=== PATIENT | female | born 1995 | race Caucasian/White ===

== ENCOUNTER 2016-05-20 09:19 | Emergency (ER) | payer OTHER ==
[2016-05-20 09:34] VITALS: BP 124/84; TEMP 97.4; O2SAT 99
[2016-05-20] MEDS ORDERED: methylPREDNISolone SODIUM SUC 125 MG/2 ML VIAL IM ONE (09:35)
[2016-05-20] MEDS ORDERED: IPRATROPIUM/ALBUTEROL 3 ML VIAL NEB ONE (09:35)
--- NOTE | 2016-05-20 09:37 | ED.PDOC ---
History of Present Illness - General Chief Complaint: Respiratory Problem Stated Complaint: cough and congestion x 2 days, worse after night Time Seen by Provider: 05/20/16 09:21 Source: patient, RN notes reviewed, Vital Signs reviewed Exam Limitations: no limitations - History of Present Illness Comments: Patient comes in with several days of worsening allergy symptoms. + chills, sneezing, cough, nausea. No chest pain but feels like there is a knot in her chest. Not improving with OTC medications. Timing/Duration: getting worse Cough Quality/Degree: moderate, productive cough Possible Cause: allergen exposure Improving Factors: nothing Worsening Factors: nothing Associated Symptoms: chest pain/soreness, cough, fever/chills, nasal congestion , shortness of breath, wheezing Allergies/Adverse Reactions: Allergies Penicillins Allergy (Verified 05/20/16 09:29) Review of Systems - Review of Systems Constitutional: States: chills. Denies: diaphoresis, fever, malaise EENTM: States: see HPI, nose congestion Respiratory: States: cough, short of breath, wheezing. Denies: orthopnea, stridor Cardiology: States: no symptoms reported Gastrointestinal/Abdominal: States: nausea. Denies: abdominal pain, diarrhea, vomiting Musculoskeletal: States: no symptoms reported Skin: States: no symptoms reported Neurological: States: no symptoms reported. Denies: headache Past Medical History (General) - Patient Medical History Hx Seizures: No Hx Stroke: No Hx Dementia: No Hx Asthma: No Hx of COPD: No Hx Cardiac Disorders: No Hx Congestive Heart Failure: No Hx Pacemaker: No Hx Hypertension: No Hx Thyroid Disease: No Hx Diabetes: No Hx Gastroesophageal Reflux: No Hx Renal Disease: No Hx Cancer: No Hx of HIV: No Hx Hepatitis C: No Hx MRSA: No - Vaccination History Hx Tetanus, Diphtheria Vaccination: Yes Hx Influenza Vaccination: No Hx Pneumococcal Vaccination: No Immunizations Up to Date: No - Social History Hx Tobacco Use: Yes Hx Chewing Tobacco Use: No Hx Alcohol Use: No Hx Substance Use: No Hx Substance Use Treatment: No Hx Depression: No Feels Threatened In Home Enviroment: No Feels Threatened In a Relationship: No Hx Physical Abuse: No Hx Emotional Abuse: No Hx Suspected Abuse: No - Female History Patient is a Female of Child Bearing Age (10 -59 yrs old): No Patient : No Family Medical History - Family History Mother Family History: Unknown Living Status: Unknown Physical Exam - Physical Exam General Appearance: Alert, Comfortable, No apparent distress, Well Developed, Well Groomed, Well Hydrated, Well Nourished Eye Exam: bilateral normal ENT Exam: hearing grossly normal, nasal congestion, pharyngeal erythema Neck: non-tender, full range of motion, supple, normal inspection Respiratory: chest non-tender, lungs clear, normal breath sounds, no respiratory distress, no accessory muscle use Cardiovascular/Chest: regular rate, rhythm, no edema, no gallop, no JVD, no murmur Neurologic: alert, normal mood/affect, oriented x 3 Skin Exam: normal color, warm/dry Departure - Departure Clinical Impression: Asthma with exacerbation Qualifiers: Asthma severity: mild intermittent Qualifier Code: (J45.21) Mild intermittent asthma with (acute) exacerbation Disposition: Discharge to Home or Self Care Condition: Good Departure Forms: ED Discharge - Pt. Copy, Patient Portal Self Enrollment Instructions: DI for Asthma -- Adult Diet: resume usual diet Activity: increase activity as tolerated
== END 2016-05-20 10:10 | disposition home or self-care (01) ==
LOC: ER 09:19
DX: J45.21 Mild intermittent asthma with (acute) exacerbation (principal); J30.1 Allergic rhinitis due to pollen; Z87.891 Personal history of nicotine dependence; Z88.0 Allergy status to penicillin
CPT/HCPCS: 94640; J2930; J7620

== ENCOUNTER 2016-06-18 09:58 | Emergency (ER) | payer OTHER ==
[2016-06-18 10:36] VITALS: TEMP 97.9; O2SAT 99
--- NOTE | 2016-06-18 11:03 | ED.PDOC ---
History of Present Illness - General Chief Complaint: Respiratory Problem Stated Complaint: cough Time Seen by Provider: 06/18/16 10:05 Source: patient Exam Limitations: no limitations - History of Present Illness Initial Comments: The patient is a 20-year-old female presenting to the emergency room secondary to recurrence of a cough over the last 3 days with mild shortness of breath. No fever. Minimal sputum production. No palpitations. No chest pain. No runny nose or congestion. She has had a history of significant seasonal allergies and was placed on Singulair last month she did help for that period of time up until 3 days ago. 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 Severity: mild Improving Factors: nothing Worsening Factors: nothing Associated Symptoms: cough, shortness of breath Allergies/Adverse Reactions: Allergies Penicillins Allergy (Verified 06/18/16 10:36) Home Medications: Ambulatory Orders Montelukast Sodium [Singulair] 10 mg PO DAILY #30 tab 05/20/16 predniSONE [Prednisone] 20 mg PO DAILY #5 tab 06/18/16 Review of Systems - Review of Systems Constitutional: States: no symptoms reported EENTM: States: no symptoms reported Respiratory: States: cough, short of breath - mild Cardiology: States: no symptoms reported Gastrointestinal/Abdominal: States: no symptoms reported Genitourinary: States: no symptoms reported Musculoskeletal: States: no symptoms reported Skin: States: no symptoms reported Neurological: States: no symptoms reported Endocrine: States: no symptoms reported All other Systems: No Change from Baseline Past Medical History (General) - Patient Medical History Hx Seizures: No Hx Stroke: No Hx Dementia: No Hx Asthma: No Hx of COPD: No Hx Cardiac Disorders: No Hx Congestive Heart Failure: No Hx Pacemaker: No Hx Hypertension: No Hx Thyroid Disease: No Hx Diabetes: No Hx Gastroesophageal Reflux: No Hx Renal Disease: No Hx Cancer: No Hx of HIV: No Hx Hepatitis C: No Hx MRSA: No Surgical History: tonsillectomy - Vaccination History Hx Tetanus, Diphtheria Vaccination: Yes Hx Influenza Vaccination: No Hx Pneumococcal Vaccination: No - Social History Hx Tobacco Use: Yes Hx Chewing Tobacco Use: No Hx Alcohol Use: No Hx Substance Use: No Hx Substance Use Treatment: No Hx Depression: No Hx Physical Abuse: No Hx Emotional Abuse: No Hx Suspected Abuse: No - Activities of Daily Living Hospice Agency (if applicable):: None - Female History Patient is a Female of Child Bearing Age (10 -59 yrs old): Yes Patient : No Family Medical History - Family History Mother Family History: Unknown Living Status: Unknown Physical Exam - Physical Exam General Appearance: Alert, Comfortable, No apparent distress Eye Exam: bilateral normal Ears, Nose, Throat: hearing grossly normal, normal ENT inspection, normal pharynx Neck: full range of motion, supple Respiratory: chest non-tender, lungs clear, normal breath sounds, no respiratory distress, no accessory muscle use, other - the patient does have a significant clearing cough. Cardiovascular/Chest: normal peripheral pulses, regular rate, rhythm, no edema Peripheral Pulses: radial,right: 2+, radial,left: 2+ Gastrointestinal/Abdominal: non tender, soft Rectal Exam: deferred Back Exam: normal inspection, no CVA tenderness, no vertebral tenderness Extremity: normal range of motion, non-tender, normal inspection, no pedal edema , normal capillary refill Neurologic: brush polisher II-XII nml as tested, alert, normal mood/affect, oriented x 3 Skin Exam: normal color Comments: Vital Signs - 24 hr 06/18/16 06/18/16 10:20 10:39 Temperature 97.9 F Pulse Rate [ 20 L pulse ox] Respiratory 20 20 Rate Blood Pressure 117/78 [Left Arm] O2 Sat by Pulse 99 Oximetry Progress - Progress Progress: 06/18/16 11:04 the patient is a 20-year-old female presenting secondary to recurrence of cough and mild intermittent shortness of breath. The patient is to continue her Singulair. She'll be written for an albuterol inhaler to take 2 -4 puffs when she is feeling any shortness of breath to see if this improves her shortness of breath. The patient is going to be placed on prednisone 20 mg daily for 5 days. The patient primarily appears to have a bronchitis. It is possibly related to mild asthma but may also be due to a viral or chemical source given her work environment. She does need to wear a mask when doing her work when she is exposed to potentially irritating substances in the air. ER warnings were given. She needs to follow up with her primary care doctor next week. Departure - Departure Clinical Impression: Acute bronchitis Qualifiers: Bronchitis organism: unspecified organism Qualified Code(s): J20.9 - Acute bronchitis, unspecified Disposition: Discharge to Home or Self Care Condition: Fair Departure Forms: ED Discharge - Pt. Copy, Patient Portal Self Enrollment Instructions: DI for Acute Bronchitis Referrals: Liban Noel MD [Primary Care Provider] - 1-2 Weeks Prescriptions: predniSONE [Prednisone] 20 mg PO DAILY #5 tab Home Medications: Ambulatory Orders Montelukast Sodium [Singulair] 10 mg PO DAILY #30 tab 05/20/16 predniSONE [Prednisone] 20 mg PO DAILY #5 tab 06/18/16 Additional Instructions: the patient is a 20-year-old female presenting secondary to recurrence of cough and mild intermittent shortness of breath. The patient is to continue her Singulair. She'll be written for an albuterol inhaler to take 2 -4 puffs when she is feeling any shortness of breath to see if this improves her shortness of breath. The patient is going to be placed on prednisone 20 mg daily for 5 days. The patient primarily appears to have a bronchitis. It is possibly related to mild asthma but may also be due to a viral or chemical source given her work environment. She does need to wear a mask when doing her work when she is exposed to potentially irritating substances in the air. ER warnings were given. She needs to follow up with her primary care doctor next week.
[2016-06-18 11:27] VITALS: BP 113/74
== END 2016-06-18 11:18 | disposition home or self-care (01) ==
LOC: ER 09:58
DX: J20.9 Acute bronchitis, unspecified (principal); Z87.891 Personal history of nicotine dependence; Z88.0 Allergy status to penicillin

== ENCOUNTER 2018-05-01 08:14 | Emergency (ER) | payer OTHER ==
[2018-05-01] MEDS ORDERED: ONDANSETRON INJ 4 MG/2 ML VIAL ONE (08:34)
[2018-05-01 08:36] VITALS: TEMP 99
[2018-05-01] MEDS ORDERED: SODIUM CHLORIDE 0.9% 1000ML 1,000 ML ONE (08:36)
[2018-05-01] MEDS ORDERED: ONDANSETRON INJ 4 MG/2 ML VIAL IV ONE (08:43)
[2018-05-01] MEDS ORDERED: SODIUM CHLORIDE 0.9% 1000ML 1,000 ML IVS ONE (08:43)
--- NOTE | 2018-05-01 08:51 | ED.PDOC ---
History of Present Illness - General Chief Complaint: Skin/Abrasion/Tear Stated Complaint: sacral abscess Time Seen by Provider: 05/01/18 08:38 Source: patient Exam Limitations: no limitations - History of Present Illness Initial Comments: Patient is a G1 at 30 weeks 6 days by U/S who presents with complaining of an abscess on the sacral area. She had vomiting x one this morning as well. She also was light-headed this morning. She said that the last time she vomited with this was about 2-3 months ago. She noticed the abscess two days ago. Patient denies contractions and says she has good movement. No other complaints. Timing/Duration: other - 2 days Severity: moderate Improving Factors: nothing Worsening Factors: nothing Associated Symptoms: other - denies fever Allergies/Adverse Reactions: Allergies Penicillins Allergy (Verified 06/18/16 10:36) Home Medications: Ambulatory Orders Acyclovir [Zovirax] 400 mg PO TID 05/01/18 Review of Systems - Review of Systems Constitutional: States: no symptoms reported EENTM: States: no symptoms reported Respiratory: States: no symptoms reported Cardiology: States: no symptoms reported Gastrointestinal/Abdominal: States: see HPI Genitourinary: States: no symptoms reported Musculoskeletal: States: no symptoms reported Skin: States: see HPI Endocrine: States: no symptoms reported Hematologic/Lymphatic: States: no symptoms reported Past Medical History (General) - Patient Medical History Hx Seizures: No Hx Stroke: No Hx Dementia: No Hx Asthma: No Hx of COPD: No Hx Cardiac Disorders: No Hx Congestive Heart Failure: No Hx Pacemaker: No Hx Hypertension: No Hx Thyroid Disease: No Hx Diabetes: No Hx Gastroesophageal Reflux: No Hx Renal Disease: No Hx Cancer: No Hx of HIV: No Hx Hepatitis C: No Hx MRSA: No Surgical History: other - Vaccination History Hx Tetanus, Diphtheria Vaccination: Yes Hx Influenza Vaccination: No Hx Pneumococcal Vaccination: No - Social History Hx Tobacco Use: Yes Hx Chewing Tobacco Use: No Hx Alcohol Use: No Hx Substance Use: No Hx Substance Use Treatment: No Hx Depression: No Hx Physical Abuse: No Hx Emotional Abuse: No Hx Suspected Abuse: No - Female History Patient : No Family Medical History - Family History Mother Family History: Unknown Living Status: Unknown Physical Exam - Physical Exam General Appearance: Alert Eye Exam: bilateral normal Ears, Nose, Throat: normal ENT inspection Neck: non-tender, full range of motion, supple Respiratory: lungs clear, normal breath sounds Cardiovascular/Chest: normal peripheral pulses, regular rate, rhythm, no edema Gastrointestinal/Abdominal: normal bowel sounds, non tender, soft, other - gravid Back Exam: normal inspection, no CVA tenderness Extremity: normal range of motion, non-tender, normal inspection Neurologic: no motor/sensory deficits, alert, normal mood/affect, oriented x 3 Skin Exam: normal color Lymphatic: no adenopathy Progress - Progress Progress: 05/01/18 10:34 Laboratory Tests 05/01/18 05/01/18 05/01/18 08:55 08:55 08:55 WBC 16.8 H RBC 3.72 L Hgb 10.4 L Hct 32.0 L MCV 86.0 MCH 28.0 MCHC 32.6 L RDW 13.2 Plt Count 299 MPV 9.0 Absolute Neuts (auto) 12.80 H Absolute Lymphs (auto) 2.40 Absolute Monos (auto) 1.40 H Absolute Eos (auto) 0.20 Absolute Basos (auto) 0.00 Neutrophils % 76.2 Lymphocytes % 14.2 L Monocytes % 8.3 Eosinophils % 1.0 Basophils % 0.3 Sodium 135 Potassium 4.0 Chloride 105 Carbon Dioxide 18 L Anion Gap 16.0 BUN < 5 L Creatinine 0.46 L BUN/Creatinine Ratio 10.9 Random Glucose 109 H Serum Osmolality 267.9 L Lactic Acid 2.0 Calcium 8.6 Total Bilirubin 0.8 AST 21 ALT 11 Alkaline Phosphatase 76 Serum Total Protein 6.6 Albumin 3.0 L Globulin 3.6 H Albumin/Globulin Ratio 0.8 L Patient's initial bp was 78/37. She was started on IV NS and a septic workup was initiated. wbc 16.8. Blood cultures taken and sent. Most likely from the abscess. Vancomycin 1250 mg IV x one and Clindamycni 600 mg po x one given in the E.D. to cover for the most likely pathogens. Patient's sbp increased to 102 after about 300 cc IV NS. One liter bolus completed and patient started on 200 ml/hr. Lactic acid 2.0. No signs of end organ damage. I spoke with her quality assurance nurse, Dr. Malinda Naqvi, who agreed with the current treatment as well as transferring the patient to [place] in [place]. Dr. Rocha, E.R., accepted the patient. While waiting for the ambulance to arrive here, the abscess site was prepped and draped in a sterile fashion. 4 cc of lidocaine without epinephrine was used to gain excellent local anesthesia. 1 cm incision made at the apex. Moderate amount of purulence expressed. Wound cultures taken and sent. Loculations broken up with curved hemostats. Abscess was irrigated with 30 cc sterile NS. Packed with iodoform gauze. Area was clean, dry, and hemostatic upon completion. Patient tolerated the procedure well. FHTs 132. 05/01/18 11:02 Departure - Departure Clinical Impression: Sepsis, Hypotension, Abscess, Third trimester Disposition: Transfer to Hospital Condition: Fair Departure Forms: ED Discharge - Pt. Copy, Patient Portal Self Enrollment Instructions: DI for Abrasion Diet: other - NPO Activity: as per physical therapy Home Medications: Ambulatory Orders Acyclovir [Zovirax] 400 mg PO TID 05/01/18
[2018-05-01] MEDS ORDERED: VANCOMYCIN HCL INJ 1,000 MG, VANCOMYCIN HCL INJ 250 MG in SODIUM CHLORIDE 0.9% 250ML 25... IVPB ONE (09:25)
[2018-05-01] MEDS ORDERED: CLINDAMYCIN INJ (VIAL) 600 MG in SODIUM CHLORIDE 0.9% 50ML 50 ML IVPB ONE (09:26)
[2018-05-01] MEDS ORDERED: CLINDAMYCIN PHOSPHATE 150 MG/ML VIAL ONE (09:28)
[2018-05-01] MEDS ORDERED: SODIUM CHLORIDE 0.9% 50ML 0 ML ONE (09:28)
[2018-05-01] MEDS ORDERED: VANCOMYCIN HCL INJ 1,000 MG VIAL IVPB ONE (09:29)
[2018-05-01] MEDS ORDERED: VANCOMYCIN HCL INJ 500 MG VIAL ONE (09:29)
[2018-05-01] MEDS ORDERED: SODIUM CHLORIDE 0.9% 250ML 250 ML ONE (09:30)
[2018-05-01] MEDS ORDERED: CLINDAMYCIN HCL CAP 150 MG CAP PO ONE (09:40)
[2018-05-01] MEDS ORDERED: LIDOCAINE 1% 10 ML VIAL INJ ONE (10:00)
[2018-05-01 10:02] VITALS: O2SAT 100
[2018-05-01] MEDS ORDERED: CHLORHEXIDINE GLUCONATE 4 % 15 ML UD TOP ONE (10:03)
[2018-05-01] MEDS ORDERED: IODOFORM 1/4 INCH 1 EA BTTL TOP ONE (10:18)
[2018-05-01] MEDS ORDERED: HYDROcodone 5MG/APAP 325MG 1 EA TAB ONE (10:52)
[2018-05-01] MEDS ORDERED: HYDROcodone 5MG/APAP 325MG 1 EA TAB PO ONE (10:54)
[2018-05-01 11:11] VITALS: BP 99/54
== END 2018-05-01 11:05 | disposition short-term general hospital (02) ==
LOC: ER 08:14
DX: O98.813 Other maternal infectious and parasitic diseases complicating pregnancy, third trimester (principal); A41.9 Sepsis, unspecified organism; L02.31 Cutaneous abscess of buttock; O99.89 Other specified diseases and conditions complicating pregnancy, childbirth and the puerperium; I95.9 Hypotension, unspecified; O21.9 Vomiting of pregnancy, unspecified; Z3A.30 30 weeks gestation of pregnancy; Z87.891 Personal history of nicotine dependence; Z88.0 Allergy status to penicillin
CPT/HCPCS: 36415; 80053; 81001; 83605; 85025; 87040; 87070; J2405; J3370; J7030; J7050

== ENCOUNTER 2018-05-15 19:15 | Inpatient (IN) | payer OTHER ==
[2018-05-15] MEDS ORDERED: SODIUM CHLORIDE 0.9% 1000ML 1,000 ML IVS ONE ×2 (19:34→20:55)
[2018-05-15] MEDS ORDERED: PROMETHAZINE HCL INJ 12.5 MG in SODIUM CHLORIDE 0.9% 50ML 50 ML IVPB ONE ×2 (19:34→22:35)
[2018-05-15] MEDS ORDERED: MORPHINE SULFATE INJ 10 MG/ML VIAL IV ONE (19:35)
[2018-05-15] MEDS ORDERED: PROMETHAZINE HCL INJ 25 MG/ML VIAL ONE ×2 (19:41→22:58)
[2018-05-15] MEDS ORDERED: SODIUM CHLORIDE 0.9% 50ML 50 ML ONE ×2 (19:41→22:58)
--- NOTE | 2018-05-15 20:00 | ED.PDOC ---
History of Present Illness - General Chief Complaint: General Stated Complaint: nausea/vomiting/diarrhea Time Seen by Provider: 05/15/18 19:33 Source: patient, family Exam Limitations: no limitations - History of Present Illness Timing/Duration: 4-6 hours Severity: moderate Improving Factors: nothing Worsening Factors: eating, movement Associated Symptoms: fever/chills, malaise, nausea/vomiting, weakness Allergies/Adverse Reactions: Allergies Penicillins Allergy (Verified 06/18/16 10:36) Home Medications: Ambulatory Orders Acyclovir [Zovirax] 400 mg PO TID 05/01/18 Review of Systems - Review of Systems Constitutional: States: chills, fever, malaise, weakness EENTM: States: nose congestion. Denies: eye pain, tearing, ear discharge, nose pain, throat pain, throat swelling, mouth pain, mouth swelling Respiratory: Denies: cough, short of breath Cardiology: Denies: chest pain, edema Gastrointestinal/Abdominal: States: diarrhea, nausea, vomiting. Denies: abdominal pain Genitourinary: Denies: discharge, dysuria, frequency, hematuria Musculoskeletal: States: muscle pain. Denies: muscle stiffness, neck pain Skin: Denies: change in color, rash Neurological: Denies: headache, numbness, paresthesia Endocrine: States: increased thirst Hematologic/Lymphatic: Denies: anemia, easy bleeding, easy bruising All other Systems: Reviewed and Negative Past Medical History (General) - Patient Medical History Hx Seizures: No Hx Stroke: No Hx Dementia: No Hx Asthma: No Hx of COPD: No Hx Cardiac Disorders: No Hx Congestive Heart Failure: No Hx Pacemaker: No Hx Hypertension: No Hx Thyroid Disease: No Hx Diabetes: No Hx Gastroesophageal Reflux: No Hx Renal Disease: No Hx Cancer: No Hx of HIV: No Hx Hepatitis C: No Hx MRSA: No Surgical History: tonsillectomy, other - Vaccination History Hx Tetanus, Diphtheria Vaccination: Yes Hx Influenza Vaccination: No Hx Pneumococcal Vaccination: No Immunizations Up to Date: Yes - Social History Hx Tobacco Use: Yes Hx Chewing Tobacco Use: No Hx Alcohol Use: No Hx Substance Use: No Hx Substance Use Treatment: No Hx Depression: No Feels Threatened In Home Enviroment: No Feels Threatened In a Relationship: No Hx Physical Abuse: No Hx Emotional Abuse: No Hx Suspected Abuse: No - Activities of Daily Living Hospice Agency (if applicable):: None - Female History Patient is a Female of Child Bearing Age (10 -59 yrs old): Yes - 32.6 weeks gestation Patient : Yes Expected Date of Delivery:: 06/14/18 Hx Gestational Age: 32 - Triage Comment ED Triage Comment: pt currently thowing up using emesis bag Family Medical History - Family History Mother Family History: Unknown Living Status: Unknown Physical Exam - Physical Exam General Appearance: Alert, Ill Appearing, Other - dehydrated Eye Exam: bilateral normal Ears, Nose, Throat: normal pharynx, other - has dry MM. no exudate, no retropharyngeal edema, no submandibular swelling, no trismus Neck: full range of motion, supple, normal inspection, lymphadenopathy (R), lymphadenopathy (L) Respiratory: chest non-tender, lungs clear, normal breath sounds, no respiratory distress, no accessory muscle use Cardiovascular/Chest: tachycardia Peripheral Pulses: radial,right: 2+, radial,left: 2+ Gastrointestinal/Abdominal: non tender, soft, no organomegaly, other - gravid uterus above the level of the umbilicus, good FHT Extremity: normal range of motion, non-tender, normal inspection Neurologic: no motor/sensory deficits, alert, normal mood/affect Skin Exam: normal color, warm/dry Progress - Progress Progress: 05/15/18 20:02 A chart review has been performed. She is here with fever, chills, N/V/D. reports being unable to tolerate PO or PO meds at home. She is currently 33 weeks . She denies history for pre-eclampsia, HELLP, gestational diabetes. She denies dysuria, Frequency, hesitancy, vaginal discharge. She reports she feels like she has the FLU, she reports that she has been around her step daughter who has the flu. She has dry MM and is tachycardic with an elevated temp. Would consider Dehydration, Bacteremia, influenza, electrolyte derangements, renal failure. Things like endometritis, colitiis, diverticulitis, colitis, ect are less likely without any pain in the abd/pelvis. 05/15/18 22:37 cbc shows an elevated WBC at 16 but I am unsure how much of this is infectious vrs . The Lactate is not elevated. The HR remained persistently elevated. The Bicarb is a bit low at 19. Her UA shows bacteria however the WBC are low. This is not related. Will bring in for hydration, antiemetics, abx to cover the UTI. She has a PCN allergy so will do macrobid given the . I discussed with Aziza Barber at 2225. Departure - Departure Clinical Impression: Dehydration during , Tachycardia Vomiting Qualifiers: Vomiting type: unspecified Vomiting Intractability: non-intractable Nausea presence: with nausea Qualified Code(s): R11.2 - Nausea with vomiting, unspecified Diarrhea Qualifiers: Diarrhea type: unspecified type Qualified Code(s): R19.7 - Diarrhea, unspecified Qualifiers: Weeks of gestation: 33 weeks Qualified Code(s): Z3A.33 - 33 weeks gestation of Fever Qualifiers: Fever type: unspecified Qualified Code(s): R50.9 - Fever, unspecified Time of Disposition: 22:25 Disposition: Admit Patient Condition: Good Departure Forms: ED Discharge - Pt. Copy, Patient Portal Self Enrollment Diet: regular diet Home Medications: Ambulatory Orders Acyclovir [Zovirax] 400 mg PO TID 05/01/18 Decision To Admit - Decistion To Admit Decision to Admit Reason: Medical Nature Decision to Admit Date: 05/15/18 Decision to Admit Time: 22:35
[2018-05-15] MEDS ORDERED: ACETAMINOPHEN LIQUID 160 MG/5 ML UD PO ONE (20:07)
[2018-05-15] MEDS ORDERED: ACETAMINOPHEN 500 MG TAB PO ONE (20:16)
[2018-05-15] MEDS ORDERED: NITROFURANTOIN MONOHYDRATE MAC 100 MG CAP PO ONE (22:35)
--- NOTE | 2018-05-16 00:36 | HP ---
SUPERVISING PHYSICIAN: Miguel Ángel Ely M.D. CHIEF COMPLAINT: Nausea, vomiting and diarrhea. HISTORY OF PRESENT ILLNESS: This is a 22 year-old female who is 33 weeks . She has had an unremarkable except she has had some personal medical issues that have somewhat complicated her . About 2 months ago she had a tooth abscess and was on an antibiotic. She then had pilonidal cyst that was incised and drained. It became infected and she was on 2 different antibiotics for it. She was actually exposed to her stepdaughter who had nausea, vomiting and diarrhea several days ago. She presented to the Emergency Room today due to nausea, vomiting and diarrhea. By the time she got to the Emergency Room her diarrhea had somewhat subsided. Initially in the E. R. her temperature was as high as 101.4. She had a heart rate of 134 with blood pressure 126/60, respiratory rate 20, O2 sat 100%. Blood cultures were drawn. Lab studies showed WBC of 16,300 with hemoglobin 11.1 and hematocrit 34.3. She did have a left leg shift on her differential. Electrolytes were basically within normal limits except that her carbon dioxide was 19, creatinine 0.54, BUN 7, serum osmolality 270.9 with lactic acid of 1.3. Bilirubin 1.8. Urinalysis had 100 of urine protein, small amount of urine bilirubin and 3+ urine bacteria. She was given several liters of fluids in the Emergency Room as well as some Macrobid and some Phenergan. I was called for hospital admission. PAST MEDICAL HISTORY: 1. Pilonidal cyst. 2. Herpes. PAST SURGICAL HISTORY: 1. Incision and drainage of pilonidal cyst. 2. Knee surgery. 3. Shoulder surgery. 4. Tonsillectomy. HOME MEDICATIONS: 1. Acyclovir. ALLERGIES: NO KNOWN DRUG ALLERGIES. SOCIAL HISTORY: She lives in [place]. She is , but due to her multiple medical problems she is temporarily living in [place] with her grandmother to assist with her activities of daily livings. She denies any tobacco, ETOH or illicit drug use. REVIEW OF SYSTEMS: GENERAL: Positive for chills and fever. Negative for weight changes other than her weight gain due to her . HEENT: Negative for sinus symptoms, ear pain vision changes or sore throat. RESPIRATORY: Denies coughing, wheezing or shortness of breath. CARDIAC: Denies chest pain, palpitations or tachycardia. GASTROINTESTINAL: Positive for nausea, vomiting and diarrhea. Negative for constipation. SKIN: Negative for lesions or rashes. NEUROLOGIC: Positive for weakness. Negative for headaches or seizures. PHYSICAL EXAMINATION: VITAL SIGNS: Temperature 98.9, heart rate 112, blood pressure 84/46, respiratory rate 20, O2 sat is 97% on room air. GENERAL: This is a 22 year-old female lying in her hospital bed. She is in no acute distress. HEENT: Normocephalic and atraumatic. Pupils are equal and reactive. Oropharynx is clear. NECK: Supple without mass. RESPIRATORY: Essentially clear to auscultation bilaterally. CARDIOVASCULAR: Regular rate and rhythm. GASTROINTESTINAL: Abdomen is soft, nondistended. Gravid uterus that is above the level of the umbilicus. She has good heart tones. EXTREMITIES: No clubbing, cyanosis or edema. NEUROLOGIC: She is awake, alert and oriented times three. Cranial nerves II- XII are warm and dry. SKIN: She does have a dressing to her upper buttock where the pilonidal cyst was drained. It is dry and intact. LABORATORY: AM labs showed WBC 13,500, hemoglobin 9, and hematocrit 27. Potassium is slightly low at 3.5 with glucose 112, calcium 8.1. Bilirubin is improved to 1.2. Preliminary blood cultures are negative to date. Urine culture is pending. All other labs and films have been reviewed via the EMR. ASSESSMENT: 1. Nausea, vomiting and diarrhea most likely secondary to viral gastroenteritis. 2. Viral gastroenteritis with fever. 3. Dehydration secondary to #2. 4. Urinary tract infection. 5. at 33 weeks gestation. 6. History of recent cellulitis/sepsis status post incision and drainage of pilonidal cyst, completed antibiotic therapy. 7. History of recent tooth abscess with completed antibiotic therapy. PLAN: We will place the patient in observation. She has received approximately 6 total liters of fluids. I spoke with her INSTRUCTIONAL SERVICES SPECIALIST associate, Dr. Segovia, and gave her an update on the patient's status as well as the plan of care, and she agreed with everything that we were doing. Her INSTRUCTIONAL SERVICES SPECIALIST is Dr. Malinda Naqvi, telephone number is [phone]. Dr. Segovia felt that we could stop giving her boluses and that we could just continue with her primary IV fluid and to advance her diet as tolerated. I have also ordered some stool studies due to her multiple antibiotics recently. She is on Rocephin for the urinary tract infection and will monitor her cultures. I will repeat her labs in the morning. Will continue to monitor closely and follow as needed. #[id number] [facility]
[2018-05-16] MEDS ORDERED: ACETAMINOPHEN SUPPOSITORY 650 MG PR PRN (00:59)
[2018-05-16] MEDS ORDERED: IV SET AND CAP CHANGE INJ INJ SCH (01:00)
[2018-05-16] MEDS ORDERED: SODIUM CHL 0.9% 50ML MIN-BAG+ 50 ML IVPB ONE (01:43)
[2018-05-16] MEDS ORDERED: cefTRIAXone SODIUM 1 GM VIAL ONE (01:43)
[2018-05-16] MEDS: cefTRIAXone SODIUM 1 GM in SODIUM CHL 0.9% 50ML MIN-BAG+ 50 ML IVPB SCH (01:56)
[2018-05-16] MEDS: KCL 20MEQ/D5 1/2NS 1,000 ML IVS PRN ×2 (01:56→20:10)
[2018-05-16] MEDS ORDERED: PROMETHAZINE HCL INJ 25 MG/ML VIAL ONE (02:27)
[2018-05-16] MEDS ORDERED: SODIUM CHLORIDE 0.9% 50ML 50 ML ONE (02:27)
[2018-05-16] MEDS: PROMETHAZINE HCL INJ 12.5 MG in SODIUM CHLORIDE 0.9% 50ML 50 ML IVPB PRN (02:34)
[2018-05-16] MEDS ORDERED: SODIUM CHLORIDE 0.9% 1000ML 1,000 ML IVS ONE (03:46)
[2018-05-16] MEDS ORDERED: HYDROmorphone HCL INJ 2 MG/ML VIAL ONE (08:30)
[2018-05-16] MEDS ORDERED: SODIUM CHLORIDE 0.9% (FLUSH) 10 ML SYG IV SCH (09:00)
[2018-05-16] MEDS ORDERED: SODIUM CHLORIDE 0.45% 1000ML 1,000 ML IVS ONE (09:13)
[2018-05-16] MEDS ORDERED: SODIUM CHLORIDE 0.45% 1000ML 1,000 ML IVS PRN (09:19)
[2018-05-16] MEDS ORDERED: POTASSIUM CHLORIDE 20 MEQ TAB PO ONE (09:19)
[2018-05-16] MEDS ORDERED: POTASSIUM CHLORIDE 20 MEQ TAB ONE (12:13)
[2018-05-16] MEDS ORDERED: PYRIDOXINE HCL 100 MG PO SCH (12:30)
[2018-05-16] MEDS: BIFIDOBACTERIUM INFANTIS 4 MG CAP PO SCH ×2 (15:38→20:51)
[2018-05-16] MEDS: ACYCLOVIR 200 MG CAP PO SCH ×2 (15:38→20:51)
[2018-05-16] MEDS: VANCOMYCIN ORAL LIQUID 2,000 MG/80 ML BOTTLE PO SCH (20:18)
[2018-05-16] MEDS: PRENATAL MULTIVIT-MIN W/FE-FA 1 EA TAB PO SCH (20:51)
[2018-05-17] MEDS ORDERED: cefTRIAXone SODIUM 1 GM VIAL ONE ×2 (00:40→19:43)
[2018-05-17] MEDS ORDERED: SODIUM CHL 0.9% 50ML MIN-BAG+ 50 ML IVPB ONE ×2 (00:40→19:42)
[2018-05-17] MEDS: cefTRIAXone SODIUM 1 GM in SODIUM CHL 0.9% 50ML MIN-BAG+ 50 ML IVPB SCH (00:44)
[2018-05-17] MEDS: VANCOMYCIN ORAL LIQUID 2,000 MG/80 ML BOTTLE PO SCH ×4 (01:50→20:03)
[2018-05-17] MEDS: KCL 20MEQ/D5 1/2NS 1,000 ML IVS PRN (04:15)
[2018-05-17] MEDS: CHOLECALCIFEROL 2,000 IU TAB PO SCH (08:51)
[2018-05-17] MEDS: PRENATAL MULTIVIT-MIN W/FE-FA 1 EA TAB PO SCH ×2 (08:51→20:51)
[2018-05-17] MEDS: BIFIDOBACTERIUM INFANTIS 4 MG CAP PO SCH ×2 (08:51→20:51)
[2018-05-17] MEDS: ACYCLOVIR 200 MG CAP PO SCH ×3 (09:14→20:51)
[2018-05-17] MEDS ORDERED: POTASSIUM CHLORIDE 20 MEQ TAB PO ONE (10:06)
[2018-05-17] MEDS ORDERED: MAGNESIUM SULFATE PREMIX 2GM 2 GM in PREMIX BAG 1 BAG IVPB ONE (10:06)
[2018-05-17] MEDS ORDERED: PROMETHAZINE HCL INJ 25 MG/ML VIAL ONE (10:25)
[2018-05-17] MEDS ORDERED: SODIUM CHLORIDE 0.9% 50ML 50 ML ONE (10:25)
[2018-05-17] MEDS: PROMETHAZINE HCL INJ 12.5 MG in SODIUM CHLORIDE 0.9% 50ML 50 ML IVPB PRN (10:30)
[2018-05-17] MEDS ORDERED: POTASSIUM CHLORIDE 20 MEQ TAB ONE (12:18)
[2018-05-17] MEDS ORDERED: MAGNESIUM SULFATE PREMIX 2GM 50 ML IVPB ONE (12:18)
--- NOTE | 2018-05-17 17:24 | PN ---
DATE: 05/17/18 SUPERVISING PHYSICIAN: Miguel Ángel Ely M.D. SUBJECTIVE: The patient was doing well this morning but later in the morning she became nauseated. She is also quite worried about her baby. Her grandmother is at the bedside and she is also quite worried. She also had some irregular contractions during the night but she could not say how long they lasted or how far apart they were. They were very irregular. Otherwise denies chest pain, vomiting, diarrhea or constipation. I informed the patient that I spoke to Dr. Segovia, her POLYSTYRENE MOLDING MACHINE TENDER associate, and that she was pleased with her progress and she had no further orders to recommend. OBJECTIVE: VITAL SIGNS: Heart rate 104, blood pressure 96/47, respiratory rate 18, O2 sat 99, temperature 98.9. RESPIRATORY: Essentially clear to auscultation. CARDIAC: Regular rate and rhythm. At times she is slightly tachycardic. GASTROINTESTINAL: Abdomen is soft, nondistended. She has good heart tones. Bowel sounds are positive. NEUROLOGIC: She is awake, alert and oriented times three. LABORATORY: CBC was basically unremarkable this morning with the exception of her hemoglobin which was 8 and hematocrit which was 23.7. Approximately 6 hours later a followup H&H was done and her hemoglobin was 8.6 with hematocrit of 26. Sodium was low at 133, potassium 3.3, chloride 111, carbon dioxide 16, creatinine 0.49, serum osmolality 263.4, calcium 8.4, magnesium 1.5. Stool for occult blood was negative. C-Diff was positive for Clostridium Difficile antigen and negative for Clostridium Difficile toxin. Stool leukocytes showed the presence of elevated fecal lactoferrin. Preliminary blood cultures show no growth after 24 hours. All other labs and films have been reviewed via the EMR. ASSESSMENT: 1. Nausea, vomiting and diarrhea secondary to viral gastroenteritis and Clostridium Difficile infection. 2. Clostridium Difficile infection, antigen positive, toxin negative. 3. Viral gastroenteritis with fever. The fever has mostly resolved. 4. Dehydration secondary to #1. 5. Urinary tract infection. 6. at 33 weeks gestation. 7. History of recent cellulitis/sepsis status post incision and drainage of pilonidal cyst, completed antibiotic therapy. 8. History of recent tooth abscess with completed antibiotic therapy. PLAN: We will continue present supportive care. Due to her multiple medical problems, we have switched her from observation to inpatient. Last night just after her Clostridium Difficile was positive, I put her on vancomycin 125 mg p.o. every 6 hours. I also gave her some K-Dur and some magnesium. I have discontinued her IV fluids. After her bout of nausea today I made her NPO for a while. She had no further complaints. It may have been stress induced so I advanced her diet to a bland diet for this evening. Her H&H was most likely low this morning due to hemodilution as it improved after 6 hours. I spoke to Dr. Segovia who is an associate of Dr. Naqvi, her POLYSTYRENE MOLDING MACHINE TENDER in [place]. We reviewed all of her labs as well as her clinical status. She asked that Dr. Naqvi's office be contacted in the morning to see if she would like close followup. I have repeated her labs for in the morning. Hopefully her vancomycin will help with her nausea and vomiting. Will also discontinue her Rocephin after 3 doses. Will monitor her cultures closely. Hopefully she can be discharged tomorrow or Friday if her labs stabilize and after speaking with her OB, Dr. Naqvi. Will continue to monitor closely and follow as needed. #[id number] [facility]
[2018-05-17] MEDS ORDERED: ONDANSETRON INJ 4 MG/2 ML VIAL IV PRN (19:08)
[2018-05-17] MEDS: SODIUM CHLORIDE 0.9% (FLUSH) 10 ML SYG IV PRN (20:51)
[2018-05-18] MEDS: cefTRIAXone SODIUM 1 GM in SODIUM CHL 0.9% 50ML MIN-BAG+ 50 ML IVPB SCH (01:22)
[2018-05-18] MEDS: VANCOMYCIN ORAL LIQUID 2,000 MG/80 ML BOTTLE PO SCH ×3 (01:42→13:59)
[2018-05-18 02:21] VITALS: O2SAT 98
[2018-05-18] MEDS: BIFIDOBACTERIUM INFANTIS 4 MG CAP PO SCH (08:11)
[2018-05-18] MEDS: PRENATAL MULTIVIT-MIN W/FE-FA 1 EA TAB PO SCH (08:12)
[2018-05-18] MEDS: ACYCLOVIR 200 MG CAP PO SCH (08:12)
[2018-05-18] MEDS: CHOLECALCIFEROL 2,000 IU TAB PO SCH (08:13)
[2018-05-18 10:09] VITALS: TEMP 97.7
[2018-05-18] MEDS ORDERED: MAGNESIUM SULFATE PREMIX 2GM 2 GM in PREMIX BAG 1 BAG IVPB ONE (11:35)
[2018-05-18] MEDS ORDERED: MAGNESIUM SULFATE PREMIX 2GM 50 ML IVPB ONE (11:45)
[2018-05-18] MEDS: SODIUM CHLORIDE 0.9% (FLUSH) 10 ML SYG IV PRN ×2 (11:52→12:00)
[2018-05-18 13:51] VITALS: BP 97/60
--- NOTE | 2018-05-25 11:51 | DS ---
SUPERVISING PHYSICIAN: Sd Sheldon MD ADMISSION DIAGNOSIS: 1. Nausea, vomiting and diarrhea most likely secondary to viral gastroenteritis. 2. Viral gastroenteritis with fever. 3. Dehydration secondary to #2. 4. Urinary tract infection. 5. at 33 weeks gestation. 6. History of recent cellulitis/sepsis status post incision and drainage of pilonidal cyst, completed antibiotic therapy. 7. History of recent tooth abscess with completed antibiotic therapy. DISCHARGE DIAGNOSIS: 1. Nausea, vomiting and diarrhea due to viral gastroenteritis and Clostridium Difficile infection, showing good response to oral vancomycin. 2. Clostridium Difficile infection, antigen positive, toxin negative. 3. Viral gastroenteritis with fever. The fever has mostly resolved. 4. Dehydration secondary to #1, resolved. 5. Urinary tract infection with final culture results showing Klebsiella pneumoniae which is sensitive to cephalosporins. 6. at 33 weeks gestation with no complications during hospitalization. 7. History of recent cellulitis/sepsis status post incision and drainage of pilonidal cyst, completed antibiotic therapy. 8. History of recent tooth abscess with completed antibiotic therapy. REASON FOR HOSPITALIZATION: This is a 22 year-old female who is 33 weeks . She has had an unremarkable except she has had some personal medical issues that have somewhat complicated her . About 2 months ago she had a tooth abscess and was on an antibiotic. She then had pilonidal cyst that was incised and drained. It became infected and she was on 2 different antibiotics for it. She was actually exposed to her stepdaughter who had nausea, vomiting and diarrhea several days ago. She presented to the Emergency Room today due to nausea, vomiting and diarrhea. By the time she got to the Emergency Room her diarrhea had somewhat subsided. Initially in the E. R. her temperature was as high as 101.4. She had a heart rate of 134 with blood pressure 126/60, respiratory rate 20, O2 sat 100%. Blood cultures were drawn. Lab studies showed WBC of 16,300 with hemoglobin 11.1 and hematocrit 34.3. She did have a left leg shift on her differential. Electrolytes were basically within normal limits except that her carbon dioxide was 19, creatinine 0.54, BUN 7, serum osmolality 270.9 with lactic acid of 1.3. Bilirubin 1.8. Urinalysis had 100 of urine protein, small amount of urine bilirubin and 3+ urine bacteria. She was given several liters of fluids in the Emergency Room as well as some Macrobid and some Phenergan. I was called for hospital admission. LABORATORY: Initial white count 16,300 and discharge was 6,600. Hemoglobin initially was 11 and hematocrit 34.3 with discharge hemoglobin 9 and hematocrit 27.1. Differential did show a left shift, resolved prior to discharge. Chemistries on discharge showed sodium 137, potassium 3.5, BUN less than 5, creatinine 0.5. Liver functions were all within normal limits. Magnesium was low at 1.5 and calcium normal at 8.6. Urinalysis showed 100 protein with greater than 160 ketones and small amount of bilirubin, 3+ bacteria on microscopic exam. Stool occult blood was negative. C. difficile toxin by PCR was pending. MICROBIOLOGY: Stool culture was pending. Final culture of urine showed Klebsiella pneumoniae which was sensitive to cephalosporins. Blood cultures showed no growth after 5 days. RADIOLOGY: No radiographic studies were submitted. HOSPITAL COURSE: Ms. Meng was admitted for dehydration and urinary tract infection with C. difficile infection. She was started on antibiotics to include oral vancomycin, Macrobid and Rocephin. She showed response to fluids and was showing good clinical improvement well enough to continue with outpatient management. Her OB doctor, Dr. Naqvi in [place] was contacted prior to discharge and felt the patient was showing good clinical response well enough to continue with outpatient management followup in the office. PLAN: Ms. Meng was discharged on 05/18/18 with instructions to followup with Dr. Naqvi in [place] the following week after discharge or sooner. She was to encourage fluids to prevent dehydration. She was to take medications as directed and told to return to the hospital or go to the Emergency Room if any worsening or concerning symptoms. Diet was usual diet as tolerated. Activity was to increase as tolerated. MEDICATIONS PRESCRIBED AT DISCHARGE: 1. Align 4 mg twice daily. 2. Phenergan tablets 25 mg q.4h. as needed, #20, no refills. 3. Vancomycin 125 mg oral tablets 4 times a day, #32, no refills. CONDITION AT DISCHARGE: Stable and improving. DISPOSITION: The patient was discharged to care of family members. #[id number] [facility]
== END 2018-05-18 14:05 | disposition home or self-care (01) | DRG 832 ==
LOC: ER 19:15 → MS 05-16 00:35 → OBSVTOIN 05-17 13:39
PROVIDERS: ADMIT Nurse Practitioner Acute Care; ATTEND Nurse Practitioner Family
DX: O99.283 Endocrine, nutritional and metabolic diseases complicating pregnancy, third trimester (principal); A04.72 Enterocolitis due to Clostridium difficile, not specified as recurrent; E86.0 Dehydration; A08.4 Viral intestinal infection, unspecified; O23.43 Unspecified infection of urinary tract in pregnancy, third trimester; Z3A.33 33 weeks gestation of pregnancy